=== PATIENT | female | born 1980 | race Caucasian/White ===

== ENCOUNTER 2016-06-21 18:04 | Emergency (ER) | payer OTHER ==
[~2016-06-21] VITALS: Ht 152.4 cm; Wt 59.0 kg
[~2016-06-21 18:04] MED LIST: [UNRECOGNIZED DRUG - CODE] IU
[2016-06-21 18:16] VITALS: BP 96/63
--- NOTE | 2016-06-21 20:09 | NUR ---
PATIENT LEFT WITHOUT BEING SEEN BY DR. KERR. NO FURTHER CARE PROVIDED FOR PATIENT.
== END 2016-06-21 20:09 | disposition left against medical advice (07) ==
LOC: MED 18:04
DX: R30.9 Painful micturition, unspecified (principal); Z53.21 Procedure and treatment not carried out due to patient leaving prior to being seen by health care provider

== ENCOUNTER 2016-07-03 08:16 | Emergency (ER) | payer OTHER ==
[~2016-07-03] VITALS: Ht 152.4 cm; Wt 57.6 kg
[2016-07-03 08:23] VITALS: BP 101/69
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
[2016-07-03] MEDS ORDERED: oxyCODONE/APAP 5/325 MG 1 TAB TAB PO ONE (08:30)
[2016-07-03] MEDS ORDERED: ONDANSETRON 4 MG ODT PO ONE (08:30)
[2016-07-03] MEDS ORDERED: IBUPROFEN 600 MG TAB PO ONE (08:30)
--- NOTE | 2016-07-03 08:31 | NUR ---
DR SHELDON AT BEDSIDE.
--- NOTE | 2016-07-03 09:11 | NUR ---
PT RESTING ON BED;ICE PACKS APPLIED TO RT ANKLE;NO ACUTE DISTRESS NOTED AT THIS TIME;WILL CONTINUE TO MONITOR PT.
--- NOTE | 2016-07-03 09:15 | NUR ---
PT WENT TO XRAY ACCOMPANIED BY TECH.
--- NOTE | 2016-07-03 09:20 | NUR ---
BACK FROM XRAY;NO ACUTE DISTRESS NOTED;WILL CONTINUE TO MONITOR PT.
--- NOTE | 2016-07-03 09:47 | NUR ---
Patient discharged with v/s stable. Written and verbal after care instructions given and explained. Patient alert, oriented and verbalized understanding of instructions. Ambulatory with steady gait. All questions addressed prior to discharge. ID band removed. Patient advised to follow up with PMD. Rx of PERCOCET given. Patient educated on indication of medication including possible reaction and side effects. Opportunity to ask questions provided and answered.
[2016-07-03 09:49] VITALS: BP 109/70
== END 2016-07-03 09:47 | disposition home or self-care (01) ==
LOC: MED 08:16
DX: S93.491A Sprain of other ligament of right ankle, initial encounter (principal); J45.909 Unspecified asthma, uncomplicated; W19.XXXA Unspecified fall, initial encounter; Y93.89 Activity, other specified; Y92.89 Other specified places as the place of occurrence of the external cause; Y99.8 Other external cause status
CPT/HCPCS: 73610; 99284; S0119

== ENCOUNTER 2017-08-15 11:29 | Emergency (ER) | payer OTHER ==
[~2017-08-15] VITALS: Ht 152.4 cm; Wt 58.1 kg
[2017-08-15 11:55] VITALS: BP 130/65
--- NOTE | 2017-08-15 11:58 | NUR ---
gave report to FANNY Hernandez.
--- NOTE | 2017-08-15 11:59 | NUR ---
PT AMBULATED TO ER BED 03
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
[2017-08-15] MEDS: IBUPROFEN 600 MG TAB PO ONE (12:33)
--- NOTE | 2017-08-15 13:10 | NUR ---
PT. RESTING COMFORTABLY IN BED , RR EVEN AND UNLABORED, BED IN LOWEST POSITION. WILL CONTINUE TO MONITOR.
[2017-08-15 14:00] VITALS: BP 128/64
--- NOTE | 2017-08-15 14:00 | NUR ---
Patient discharged with v/s stable. Written and verbal after care instructions given and explained. Patient alert, oriented and verbalized understanding of instructions. Ambulatory with steady gait. All questions addressed prior to discharge. ID band removed. Patient advised to follow up with PMD. Rx of IBUPROFEN 600MG given. Patient educated on indication of medication including possible reaction and side effects. Opportunity to ask questions provided and answered.
== END 2017-08-15 14:00 | disposition home or self-care (01) ==
LOC: MED 11:29
DX: S92.404A Nondisplaced unspecified fracture of right great toe, initial encounter for closed fracture (principal); W21.02XA Struck by soccer ball, initial encounter; Y93.66 Activity, soccer; Y99.8 Other external cause status; Y92.89 Other specified places as the place of occurrence of the external cause
CPT/HCPCS: 29515; 73660; 81025; 99284

== ENCOUNTER 2020-07-14 16:28 | Emergency (ER) | payer OTHER ==
[~2020-07-14] VITALS: Ht 154.9 cm; Wt 57.6 kg
[~2020-07-14 16:28] MED LIST changes: +[UNRECOGNIZED DRUG - CODE] IU; -[UNRECOGNIZED DRUG - CODE] IU
--- NOTE | 2020-07-14 16:59 | NUR ---
CALLED FOR PT, NOT OUTSIDE
[2020-07-14 17:10] VITALS: BP 126/80
--- NOTE | 2020-07-14 17:23 | NUR ---
PT COMPLAINS OF LEFT KNEE PAIN X WEDNESDAY. PT STATES SHE WAS PLAYING SOCCER AND ANOTHER PLAYER LANDED ON KNEE. ABLE TO AMBULATE WITHOUT DIFFICULTY. LIMITED ROM. PMH - DENIES
[2020-07-14] MEDS ORDERED: NAPR-54 PO (17:34)
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
[2020-07-14] MEDS ORDERED: KETOROLAC 30 MG/ML VIAL IM ONE (17:45)
== END 2020-07-14 17:50 | disposition home or self-care (01) ==
LOC: MED 16:28
DX: M25.562 Pain in left knee (principal); J45.909 Unspecified asthma, uncomplicated; Z79.899 Other long term (current) drug therapy
CPT/HCPCS: 73562; 96372; 99283; J1885

== ENCOUNTER 2021-01-07 18:52 | Emergency (ER) | payer OTHER ==
[~2021-01-07] VITALS: Ht 154.9 cm; Wt 57.6 kg
[~2021-01-07 18:52] MED LIST changes: +NAPR-54 PO
[2021-01-07 19:16] VITALS: BP 117/76
--- NOTE | 2021-01-07 19:23 | NUR ---
PATIENT TO LOBBY WITH URINE CUP IN HAND FOR URINE COLLECTION
--- NOTE | 2021-01-07 19:59 | NUR ---
PT AMBULATED TO ER BDE 05 W/P ASSISTANCE
--- NOTE | 2021-01-07 20:07 | NUR ---
ERMD AT BEDSIDE FOR PT ASSESSMENT.
--- NOTE | 2021-01-07 20:07 | NUR ---
Cabrera ferrer in ED - 01/07/21 at 2038 by NICHELLE PT ASSESSMENT COMPLETED BY ZORAIDA. NO NURSING INTERVENTIONS COMPLETED BY ZORAIDA.
--- NOTE | 2021-01-07 20:07 | NUR ---
PT ASSESSMENT COMPLETED BY ZORAIDA. NO NURSING INTERVENTIONS REQUIRED AT THIS TIME.
[2021-01-07] MEDS ORDERED: PRED20TA5 PO (20:16)
[2021-01-07 20:20] VITALS: BP 117/76
--- NOTE | 2021-01-07 20:20 | NUR ---
Patient discharged with v/s stable. Written and verbal after care instructions given and explained. Patient alert, oriented and verbalized understanding of instructions. Ambulatory with steady gait. All questions addressed prior to discharge. ID band removed. Patient advised to follow up with PMD. Rx of DELTASONE given. Patient educated on indication of medication including possible reaction and side effects. Opportunity to ask questions provided and answered.
== END 2021-01-07 20:20 | disposition home or self-care (01) ==
LOC: MED 18:52
DX: B08.1 Molluscum contagiosum (principal); R21 Rash and other nonspecific skin eruption; J45.909 Unspecified asthma, uncomplicated; Z79.899 Other long term (current) drug therapy; Z98.890 Other specified postprocedural states
CPT/HCPCS: 99283

== ENCOUNTER 2022-05-24 13:43 | Emergency (ER) | payer OTHER ==
[~2022-05-24] VITALS: Ht 154.9 cm; Wt 56.2 kg
[~2022-05-24 13:43] MED LIST changes: +PRED20TA5 PO
[2022-05-24 13:54] VITALS: BP 139/95
--- NOTE | 2022-05-24 14:06 | NUR ---
PT TAKEN TO XRAY VIA WC
--- NOTE | 2022-05-24 14:14 | NUR ---
SWABS DONE AND HANDED TO LAB
[2022-05-24] MEDS ORDERED: ALBUTEROL 0.083% 2.5 MG/3 ML NEBU INH ONE (14:20)
[2022-05-24] MEDS ORDERED: DEXAMETHASONE 10 MG/ML VIAL IM ONE (14:20)
[2022-05-24] MEDS ORDERED: IPRATROPIUM 0.02% 0.5 MG/2.5 ML NEBU INH ONE (14:20)
--- NOTE | 2022-05-24 14:30 | NUR ---
RT AT PT SIDE FOR BREATHING TREATMENT
[2022-05-24] MEDS ORDERED: BENZ100C6 PO (14:37)
[2022-05-24] MEDS ORDERED: ALBU0.0912 IH (14:37)
--- NOTE | 2022-05-24 15:11 | NUR ---
Patient discharged with v/s stable. Written and verbal after care instructions ABOUT ACUTE BRONCHITIS given and explained. Patient alert, oriented and verbalized understanding of instructions. Ambulatory with steady gait. All questions addressed prior to discharge. ID band removed. Patient advised to follow up with PMD. Rx of ALBUTEROL AND BENZONATATE given. Patient educated on indication of medication including possible reaction and side effects. Opportunity to ask questions provided and answered.
== END 2022-05-24 15:11 | disposition home or self-care (01) ==
LOC: MED 13:43
DX: J20.9 Acute bronchitis, unspecified (principal); Z20.822 Contact with and (suspected) exposure to COVID-19; J45.909 Unspecified asthma, uncomplicated; Z79.899 Other long term (current) drug therapy
CPT/HCPCS: 71045; 87081; 87426; 87804; 94640; 96372; 99284; J1100; J7613; J7644

== ENCOUNTER 2022-09-04 22:25 | Emergency (ER) | payer OTHER ==
[~2022-09-04] VITALS: Ht 152.4 cm; Wt 56.2 kg
[~2022-09-04 22:25] MED LIST changes: +ALBU0.0912 IH; +BENZ100C6 PO
[2022-09-04 22:45] VITALS: BP 125/97
--- NOTE | 2022-09-05 00:50 | NUR ---
PT CALLED SEVERAL TIMES NO ANSWER. CALLED AT 0013, 0015 AND 0050. LWBS
== END 2022-09-05 00:50 | disposition left against medical advice (07) ==
LOC: MED 22:25
DX: R51.9 Headache, unspecified (principal); Z53.21 Procedure and treatment not carried out due to patient leaving prior to being seen by health care provider
CPT/HCPCS: 99281

== ENCOUNTER 2022-09-06 22:15 | Emergency (ER) | payer OTHER ==
[~2022-09-06] VITALS: Ht 152.4 cm; Wt 65.3 kg
[2022-09-06 22:20] VITALS: BP 125/75; PULSE 78; RESP 17; TEMP 98.6; O2SAT 98
--- NOTE | 2022-09-06 22:20 | NUR ---
TO BED AMBULATORY
[2022-09-06] MEDS ORDERED: LIDOCAINE 5% 1 EA PATCH TP ONE (23:35)
[2022-09-06] MEDS ORDERED: KETOROLAC 30 MG/ML VIAL IM ONE (23:35)
--- NOTE | 2022-09-06 23:58 | NUR ---
Pt report given to Rosey ESCOBEDO. Transfer of care at this time.
[2022-09-07] MEDS ORDERED: IBUP-2213 PO (00:31)
[2022-09-07] MEDS ORDERED: LID5T TP (00:31)
[2022-09-07 00:45] VITALS: BP 125/75; PULSE 78; RESP 17; TEMP 98.6; O2SAT 98
--- NOTE | 2022-09-07 00:45 | NUR ---
Patient discharged with v/s stable. Written and verbal after care instructions given and explained. Patient alert, oriented and verbalized understanding of instructions. Ambulatory with steady gait. All questions addressed prior to discharge. ID band removed. Patient advised to follow up with PMD. Rx of lidoderm and motrin given. Patient educated on indication of medication including possible reaction and side effects. Opportunity to ask questions provided and answered.
== END 2022-09-07 00:45 | disposition home or self-care (01) ==
LOC: MED 22:15
DX: S06.0X1A Concussion with loss of consciousness of 30 minutes or less, initial encounter (principal); S16.1XXA Strain of muscle, fascia and tendon at neck level, initial encounter; J45.909 Unspecified asthma, uncomplicated; Z79.899 Other long term (current) drug therapy; W21.02XA Struck by soccer ball, initial encounter; Y93.66 Activity, soccer; Y92.89 Other specified places as the place of occurrence of the external cause; Y99.8 Other external cause status
CPT/HCPCS: 70450; 96372; 99285; J1885

== ENCOUNTER 2023-03-14 12:06 | Emergency (ER) | payer OTHER ==
[~2023-03-14] VITALS: Ht 154.9 cm; Wt 57.6 kg
[~2023-03-14 12:06] MED LIST changes: +IBUP-2213 PO; +LID5T TP
[2023-03-14 12:34] VITALS: BP 103/73; PULSE 78; RESP 18; TEMP 98.4; O2SAT 98
== END 2023-03-14 13:55 | disposition home or self-care (01) ==
LOC: MED 12:06
DX: J04.0 Acute laryngitis (principal); R49.0 Dysphonia; J45.909 Unspecified asthma, uncomplicated; Z79.899 Other long term (current) drug therapy; Z79.1 Long term (current) use of non-steroidal anti-inflammatories (NSAID)
CPT/HCPCS: 99281

== ENCOUNTER 2023-12-02 17:19 | Emergency (ER) | payer OTHER ==
[~2023-12-02] VITALS: Ht 152.4 cm; Wt 57.6 kg
[~2023-12-02 17:19] MED LIST changes: +NAPR-337 PO; -NAPR-54 PO
[2023-12-02 17:41] VITALS: BP 122/85; PULSE 81; RESP 16; TEMP 98.4; O2SAT 99
[2023-12-02] MEDS: LIDOCAINE MPF 1% 10 MG/ML VIAL INJ ONE (18:29)
[2023-12-02] MEDS ORDERED: SULF-59 PO (19:11)
== END 2023-12-02 19:19 | disposition home or self-care (01) ==
LOC: MED 17:19
DX: L02.811 Cutaneous abscess of head [any part, except face] (principal); J45.909 Unspecified asthma, uncomplicated; Z79.899 Other long term (current) drug therapy
CPT/HCPCS: 10060; 99283; J2001